=== PATIENT | female | born 1965 | race Caucasian/White ===

== ENCOUNTER → 2017-12-03 | Day surgery (SDC) | payer BC | LOC: EDSEX → MSO 07:34 | DX: K21.9 Gastro-esophageal reflux disease without esophagitis (principal); Z88.1 Allergy status to other antibiotic agents; Z85.41 Personal history of malignant neoplasm of cervix uteri; Z85.820 Personal history of malignant melanoma of skin; Z92.3 Personal history of irradiation; Z90.49 Acquired absence of other specified parts of digestive tract; J30.1 Allergic rhinitis due to pollen; Z90.710 Acquired absence of both cervix and uterus | CPT/HCPCS: 00812; J2704; J3010; J7120 ==